=== PATIENT | female | born 1960 | race Caucasian/White ===

== ENCOUNTER 2016-12-04 14:11 | Emergency (ER) | payer MEDICARE | END 2016-12-04 15:04 | disposition home or self-care (01) | LOC: ER1 14:11 | DX: J06.9 Acute upper respiratory infection, unspecified (principal); E03.9 Hypothyroidism, unspecified; G43.909 Migraine, unspecified, not intractable, without status migrainosus; N18.3 Chronic kidney disease, stage 3 (moderate); I12.9 Hypertensive chronic kidney disease with stage 1 through stage 4 chronic kidney disease, or unspecified chronic kidney disease; Z88.0 Allergy status to penicillin; Z88.8 Allergy status to other drugs, medicaments and biological substances; Z79.899 Other long term (current) drug therapy | CPT/HCPCS: 99282 ==

== ENCOUNTER → 2021-04-29 | Outpatient (CLI) | payer BC ==
[~2021-04-29] MED LIST: MUCINEX DM ER1 EAC1 PO
== END ==
LOC: EXRD 09:41
DX: R05 Cough (principal)
CPT/HCPCS: 71046

== ENCOUNTER → 2022-05-19 | Outpatient (CLI) | payer OTHER | LOC: US 09:58 | DX: I10 Essential (primary) hypertension (principal); N28.1 Cyst of kidney, acquired | CPT/HCPCS: 93975 ==